=== PATIENT | male | born 1960 | race Caucasian/White ===

== ENCOUNTER 2021-08-02 02:29 | Day surgery (SDC) | payer OTHER, SELFPAY ==
[2021-07-19 14:30] VITALS: BMI 33.9
[2021-08-02 06:41] VITALS: BP 122/84; PULSE 87; RESP 16; TEMP 36.1; O2SAT 97; BMI 32.8
[2021-08-02] MEDS: LACTATED RINGERS 1,000 ML 150 ML IV CONT (07:00)
--- NOTE | 2021-08-02 07:06 | PM.HPGS ---
History of Present Illness History of Present Illness Consent: Risks, benefits, and alternatives have been discussed and questions answered. Patient agrees to proceed with procedure. Chief complaint: hx of colon polyps Narrative: Brendan Ward is a 61 year old male With a history of polyps Review of Systems Review of Systems: All systems reviewed & are unremarkable except as noted in HPI and below PMFSH Social History Social History Smoking status: Never smoker Alcohol intake: current Drinks per week: 6 Living arrangements: with family Spiritual care concerns: No Meds Home Medications and Allergies Home Medications Medication Instructions Recorded Confirmed Type aspirin 325 mg PO HS 07/19/21 08/02/21 History cholecalciferol (vitamin D3) 125 mcg PO DAILY 07/19/21 08/02/21 History dulaglutide [Trulicity] 1.5 mg SUBCUT WEEKLY 07/19/21 08/02/21 History glimepiride 2 mg PO DAILY 07/19/21 08/02/21 History icosapent ethyl [Vascepa] 2 g PO BID 07/19/21 08/02/21 History metformin 1,000 mg PO BID 07/19/21 08/02/21 History metoprolol succinate 50 mg PO DAILY 07/19/21 08/02/21 History niacin [Niaspan Extended-Release] 2,000 mg PO HS 07/19/21 08/02/21 History rivaroxaban [Xarelto] 20 mg PO DAILY 07/19/21 08/02/21 History rosuvastatin 10 mg PO HS 07/19/21 08/02/21 History tadalafil 10 mg PO DAILY PRN 07/19/21 08/02/21 History vitamin B complex [B 1 tablet PO DAILY 07/19/21 08/02/21 History Complex-Vitamin B12] Allergies Allergy/AdvReac Type Severity Reaction Status Date / Time No Known Allergies Allergy Verified 08/02/21 06:39 Vital Signs Vital Signs - 24 hr 08/02/21 06:41 Temperature 36.1 C L Pulse Rate 87 Respiratory Rate 16 Blood Pressure 122/84 Pulse Oximetry 97 Exam Resp: Auscultation: clear to auscultation bilaterally Cardio: Rate: regular rate Rhythm: regular rhythm GI: GI Palp: Yes Soft to palpation and No Tenderness to palpation present (GI) Assessment and Plan Assessment and plan (1) Colon cancer screening: Code(s): Z12.11 - Encounter for screening for malignant neoplasm of colon Status: Acute Assessment and Plan: Colonoscopy with possible biopsy or polypectomy or cautery or injection of substances.
--- NOTE | 2021-08-02 07:09 | P.PNAN_ITS ---
Anes - Initial Pre Proc Eval Procedure: Operation Date: 08/02/21 08:00 Proposed Procedures p Screening Colonoscopy - Jose Marie MD Date/Time: 08/02/21 07:09 Surgeon: Jose Marie MD Pre Op Diagnosis: hx of colon polyps Patient Data Age: 61 Gender: M Height: 1.83 m Weight: 110 kg Last Vital Signs Temp 36.1 C L 08/02/21 06:41 Pulse 87 08/02/21 06:41 Resp 16 08/02/21 06:41 BP 122/84 08/02/21 06:41 Pulse Ox 97 08/02/21 06:41 Allergies Allergy/AdvReac Type Severity Reaction Status Date / Time No Known Allergies Allergy Verified 08/02/21 06:39 Home Medications Medication Instructions Recorded Confirmed Type aspirin 325 mg PO HS 07/19/21 08/02/21 History cholecalciferol (vitamin D3) 125 mcg PO DAILY 07/19/21 08/02/21 History dulaglutide [Trulicity] 1.5 mg SUBCUT WEEKLY 07/19/21 08/02/21 History glimepiride 2 mg PO DAILY 07/19/21 08/02/21 History icosapent ethyl [Vascepa] 2 g PO BID 07/19/21 08/02/21 History metformin 1,000 mg PO BID 07/19/21 08/02/21 History metoprolol succinate 50 mg PO DAILY 07/19/21 08/02/21 History niacin [Niaspan Extended-Release] 2,000 mg PO HS 07/19/21 08/02/21 History rivaroxaban [Xarelto] 20 mg PO DAILY 07/19/21 08/02/21 History rosuvastatin 10 mg PO HS 07/19/21 08/02/21 History tadalafil 10 mg PO DAILY PRN 07/19/21 08/02/21 History vitamin B complex [B 1 tablet PO DAILY 07/19/21 08/02/21 History Complex-Vitamin B12] Patient hx anesthesia problems: none Family hx anesthesia problems: none Results Review: All pre-operative results and documents have been reviewed as part of the pre-operative evaluation. [facility] Past Medical History Medical History (Updated 08/02/21 @ 07:10 by Henry Tejeda MD) Atrial fibrillation Chronic GERD Diabetes HTN (hypertension) Hyperlipidemia Obesity Social History Social History Smoking status: Never smoker Alcohol intake: current Drinks per week: 6 Living arrangements: with family Spiritual care concerns: No Anes - Eval Final PreProcedure Day of Procedure 08/02/21 07:09 Patient weight: obese Heart: regular rate and rhythm Lungs: clear to auscultation and normal air movement Airway: Mallampati scale class II Neurological: alert and oriented Last oral intake: >/= 8 hours ASA classification: III Emergent: no Anesthetic plan: proceed Anesthesia type and monitoring: general GIVS Results Review: All pre-operative results and documents have been reviewed as part of the pre-operative evaluation. Informed Consent: The patient's anesthetic plan and its attendant risks and benefits were discussed with the patient/family/POA. Questions were solicited and answers provided to the satisfaction of the patient/family/POA.
[2021-08-02 08:03] LABS: Glucose Point of Care 186 mg/dl (65-105)
[2021-08-02 08:22] VITALS: BP 99/63; PULSE 87; RESP 16; O2SAT 99
[2021-08-02 08:32] VITALS: BP 95/63; PULSE 100; RESP 21; O2SAT 95
[2021-08-02 08:42] VITALS: BP 110/68; PULSE 90; RESP 23; O2SAT 95
== END 2021-08-02 08:54 | disposition home or self-care (01) ==
PROVIDERS: PCP Internal Medicine; Visit Provider Internal Medicine Gastroenterology
PROC: 0DJD8ZZ Inspection of Lower Intestinal Tract, Via Natural or Artificial Opening Endoscopic (ICD-10-PCS; CPT 45378; principal; 2021-08-02 08:00)
DX: Z12.11 Encounter for screening for malignant neoplasm of colon (principal); K63.5 Polyp of colon; Z79.01 Long term (current) use of anticoagulants; Z79.82 Long term (current) use of aspirin; Z79.84 Long term (current) use of oral hypoglycemic drugs; I48.91 Unspecified atrial fibrillation; K21.9 Gastro-esophageal reflux disease without esophagitis; I10 Essential (primary) hypertension; E78.5 Hyperlipidemia, unspecified; E66.9 Obesity, unspecified; Z68.32 Body mass index [BMI] 32.0-32.9, adult
CPT/HCPCS: 45380; 82948; 88305; J2704; J7120

== ENCOUNTER 2021-08-28 10:01 | Emergency (ER) | payer OTHER, SELFPAY ==
--- NOTE | 2021-08-28 10:09 | ED.GENADULT ---
HPI - General Adult General Chief complaint: Abdominal Pain Stated complaint: groin pain Time Seen by Provider: 08/28/21 10:09 Source: patient and RN notes reviewed Mode of arrival: ambulatory Limitations: no limitations History of Present Illness HPI narrative: Brendan is a 61-year-old male patient who ambulated into the [facility]. Patient has a several day history of left groin pain. Patient states he did move a refrigerator in the last few days. Patient states he did not left he was to stabilize in a refrigerator. Patient states the left groin pain increases with movement of his left leg or walking. Patient rates his pain a 2 while sitting. Patient states it is a 6 with movement. Patient denies Related Data Home Medications Medication Instructions Recorded Confirmed Trulicity 1.5 mg SUBCUT WEEKLY 07/19/21 08/28/21 Xarelto 20 mg PO DAILY 07/19/21 08/28/21 aspirin 325 mg PO HS 07/19/21 08/28/21 glimepiride 2 mg PO DAILY 07/19/21 08/28/21 icosapent ethyl [Vascepa] 2 g PO BID 07/19/21 08/28/21 metformin 2,000 mg PO BID 07/19/21 08/28/21 metoprolol succinate 50 mg PO DAILY 07/19/21 08/28/21 niacin [Niaspan Extended-Release] 2,000 mg PO HS 07/19/21 08/28/21 rosuvastatin 10 mg PO HS 07/19/21 08/28/21 Allergies Allergy/AdvReac Type Severity Reaction Status Date / Time No Known Allergies Allergy Verified 08/28/21 12:24 Review of Systems Review of Systems: CONSTITUTIONAL: denies body aches fever chills, sweats. EYES: Denies visual changes, redness, or discharge. ENT: rhinorrhea, congestion, sore throat, or otalgia. CARDIOVASCULAR: Denies chest pain, palpitations, or edema. RESPIRATORY: Denies cough or dyspnea. GASTROINTESTINAL: Denies abdominal pain, nausea, vomiting, or diarrhea. GENITOURINARY: Denies dysuria or hematuria. SKIN: Denies rash, itching, or wounds. MUSCULOSKELETAL: Denies back pain, joint pain, or myalgia.+ right groin pain NEUROLOGIC: Denies headache, numbness, tingling, or weakness. PSYCH: Denies depression or anxiety. All systems reviewed & are unremarkable except as noted in HPI and below PMFSH Past Medical History Medical History Atrial fibrillation Chronic GERD Diabetes HTN (hypertension) Hyperlipidemia Obesity Social History Social History Smoking status: Never smoker Alcohol intake: current Drinks per week: 6 Spiritual care concerns: No Comments At time of signature, I have reviewed and agree with nursing past medical, surgical, social and family history unless otherwise noted. Please see nursing chart for further information. There is no relevant family history pertinent to the presenting complaint Exam Narrative: GENERAL: Well-appearing, well-nourished, and in no acute distress. HEAD: Normocephalic, atraumatic. EYES: EOMI. No redness or drainage. Conjunctivae normal. ENT: Mucous membranes pink and moist. Nares clear. NECK: Normal AROM. Supple. CHEST: No respiratory distress. Clear to auscultation. ABDOMEN: Soft, nontender, nondistended, normal active bowel sounds. MUSCULOSKELETAL: No bony tenderness' Pain to groin with left leg lift and flexion of hip, testicles pink without nodules, urine yellow and clear, Negative for CVA tenderness bilaterally EXTREMITIES: Normal range of motion. No edema. SKIN: Warm, dry, no rash. Capillary refill normal. Normal skin turgor. NEURO: No focal deficits. Alert and oriented x3. Gait steady. PSYCH: Normal affect. No signs of depression or anxiety. Course Vital Signs Vital signs: Vital Signs Temperature 36.2 C L 08/28/21 10:12 Pulse Rate 87 08/28/21 10:12 Respiratory Rate 18 08/28/21 10:12 Blood Pressure 124/88 08/28/21 10:12 Pulse Oximetry 98 08/28/21 10:12 Temperature 36.2 C L 08/28/21 10:12 Pulse Rate 87 08/28/21 10:12 Respiratory Rate 18 08/28/21 10:12 Blood Pressure 124/88 1
[2021-08-28 10:12] VITALS: BP 124/88; PULSE 87; RESP 18; TEMP 36.2; O2SAT 98
== END 2021-08-28 10:44 | disposition home or self-care (01) ==
PROVIDERS: Emergency Provider Nurse Practitioner Family; PCP Internal Medicine
DX: S39.011A Strain of muscle, fascia and tendon of abdomen, initial encounter (principal); X58.XXXA Exposure to other specified factors, initial encounter; K21.9 Gastro-esophageal reflux disease without esophagitis; E11.9 Type 2 diabetes mellitus without complications; I10 Essential (primary) hypertension; E78.5 Hyperlipidemia, unspecified; E66.9 Obesity, unspecified; Z68.45 Body mass index [BMI] 70 or greater, adult
CPT/HCPCS: 81003; 87086; 99213; G0463

== ENCOUNTER 2024-06-20 07:57 | Outpatient (CLI) | payer OTHER, SELFPAY ==
--- NOTE | 2024-06-20 08:04 | ECG_ITS ---
Test Date: 2024-06-20 08:16:55 Measurements Intervals [place] Rate: 73 P: 0 VT: 0 QRS: -9 QRSD: 80 T: 14 QT: 386 QTc: 427 Interpretive Statements ATRIAL FIBRILLATION LOW QRS VOLTAGE IN EXTREMITY LEADS [QRS DEFLECTION < 0.5 mV IN LIMB LEADS] ABNORMAL RHYTHM ECG No previous ECG available for comparison Electronically Signed On 06-20-2024 12:08:47 CDT by Geronimo Capps M.D.
== END 2024-06-20 07:58 | disposition home or self-care (01) ==
LOC: ANHSURGERY 08:01
PROVIDERS: PCP Physician Assistant Medical; Visit Provider Surgery
DX: K43.6 Other and unspecified ventral hernia with obstruction, without gangrene (principal); I10 Essential (primary) hypertension; Z01.818 Encounter for other preprocedural examination
CPT/HCPCS: 36415; 86850; 86900; 86901; 93005

== ENCOUNTER 2024-06-21 04:35 | Day surgery (SDC) | payer OTHER, SELFPAY ==
--- NOTE | 2024-06-19 10:47 | PC.NURSE ---
Report to the Outpatient Waiting Room, entrance under the green pavilion located off [facility], at time _0900_ on date _[id number]_. Planned Procedure Time: _1100_.? Time changes happen often and if your time is changed the preop area will call you the afternoon before. - You and your visitor will be asked to self-screen and do not enter if you have any COVID symptoms. Please call surgeon if you need to reschedule. - A mask is optional within the hospital at this time. Patients may have clear liquids (water, carbonated beverages, clear teas, apple juice) until 3 hours prior to surgery with a maximum of 20 ounces. - No food from midnight until time of surgery and no smoking Take only the following medications with a SIP of water on the morning of surgery: __Metoprolol DO NOT STOP ANY OF YOUR OTHER PRESCRIPTION MEDICATIONS PRIOR TO SURGERY EXCEPT THE FOLLOWING Medications to discontinue per physician ____Vitamins and fish oil Date to take last dose___Stop now. Patient stopped Xarelto 06-18-2024 per 's instructions. Please no make-up, nail occitan, hairspray, perfume, deodorant, or body powder the day of surgery.? No jewelry (including any body piercings) or valuables the day of surgery, leave them at home.? Please take a shower or bath the night before, or the morning of, surgery with an antibacterial soap.? Wear comfortable, loose fitting clothing.? - Jewelry must be removed prior to entering the operating room.? Rings and piercings that are not removed may be cut off. - The hospital will not accept responsibility for valuables.? - Please leave all valuables, including medications, at home the day of surgery. If you are going home after surgery, a licensed four horse hitch driver must drive you home.? - NO public transportation without another adult if you receive anesthesia. - We recommend that an adult stay with you for 24 hours following discharge. - We also recommend that you do not drive, make important decision, drink alcoholic beverages, or take any drugs that were not prescribed by your health care provider for at least 24 hours after your discharge time. Follow any additional instructions given to you from your surgeon. Telephone instructions given to __Denjoselito__and asked if any additional questions and then verbalized understanding. Patient advised to call surgeon office or pre surgery nurse liaison [phone] if any additional questions.
[2024-06-19 10:51] VITALS: BMI 29.2
--- NOTE | 2024-06-20 14:07 | WPDANESEPPF ---
Anes - Initial Pre Proc Eval Procedure: Operation Date: 06/21/24 11:00 Proposed Procedures p Robotic Assisted Laparoscopic Extended Totally Extraperitoneal Incarcerated Ventral Hernia Repair with Mesh, Possible Open, - Kemal Hendricks MD s Excision of Midback Sebaceous Cyst - Kemal Hendricks MD Date/Time: 06/20/24 14:07 Surgeon: Kemal Hendricks MD Pre Op Diagnosis: incarcerated ventral hernia, sebaceous back cyst Patient Data Age: 64 Gender: M Height: 1.83 m Weight: 97.7 kg Allergies Allergy/AdvReac Type Severity Reaction Status Date / Time No Known Allergies Allergy Verified 06/21/24 10:01 Home Medications Medication Instructions Recorded Confirmed Type metoprolol succinate 50 mg 50 mg PO DAILY 07/19/21 06/21/24 History tablet,extended release 24 hr rivaroxaban 20 mg tablet (Xarelto) 20 mg PO DAILY 07/19/21 06/19/24 History metformin 500 mg tablet,extended 1,000 mg PO BID #180 tabs 05/21/24 06/19/24 Rx release 24 hr icosapent ethyl 1 gram capsule 2 g PO BID #360 caps 06/05/24 06/19/24 Rx (Vascepa) blood-glucose meter,continuous #1 ea 06/10/24 06/19/24 Rx (FreeStyle Pam 3 [place]) blood-glucose sensor (FreeStyle #2 ea 06/10/24 06/19/24 Rx Pam 3 Sensor device) glimepiride 2 mg tablet 2 mg PO DAILY #90 tabs 06/10/24 06/19/24 Rx rosuvastatin 10 mg tablet 10 mg PO QHS 06/10/24 06/19/24 History tadalafil 10 mg tablet (Cialis) 10 mg PO DAILY PRN sexual activity 06/10/24 06/19/24 Rx #15 tabs semaglutide 1 mg/dose (4 mg/3 mL) 1 mg (0.75 mL) subcut WEEKLY #12 mL 06/13/24 06/19/24 Rx subcutaneous pen injector (Ozempic) cholecalciferol (vitamin D3) 125 125 mcg PO DAILY 06/19/24 06/19/24 History mcg (5,000 unit) tablet (Vitamin D3) cyanocobalamin (vitamin B-12) 1,000 mcg PO DAILY 06/19/24 06/19/24 History 1,000 mcg tablet (Vitamin B-12) zinc 50 mg tablet 50 mg PO DAILY 06/19/24 06/19/24 History Patient hx anesthesia problems: none Family hx anesthesia problems: none Results Review: All pre-operative results and documents have been reviewed as part of the pre-operative evaluation. [facility] Past Medical History Medical History Atrial fibrillation Chronic GERD Diabetes Diabetic neuropathy HTN (hypertension) Hyperlipidemia Obesity Surgical History Surgical History History of elbow surgery Family History Family History Father Diabetes mellitus Hypertension Mother Cancer Sibling Diabetes mellitus Hypertension Social History Social History Social History: 06/03/24 very confident with medical forms. Smoking status: Never smoker Alcohol intake: current Drinks per week: 5 Alcohol use details: whiskey; 2 per month Substance use: never Substance use type: marijuana Other substance usage details: Maybe monthly Do You Feel Safe in your Home?: Yes Lack of Transportation: No Lack of Food: Never True Current Housing: I Have Housing Concerned About Future Housing: No Difficulty Paying Gas/Electric Bills: No Difficulty Paying for Meds: No Currently Unemployed: No Education: Bachelor's Degree Difficulty w/ Childcare or Family Care: No Living arrangements: with family Spiritual care concerns: No Agree to blood products: Yes Anes - Eval Final PreProcedure Day of Procedure 06/20/24 14:07 Patient weight: normal Heart: regular rate and rhythm Lungs: clear to auscultation Airway: Mallampati scale class II Neurological: alert and oriented Last oral intake: >/= 8 hours ASA classification: III Emergent: no Anesthetic plan: proceed Anesthesia type and monitoring: general ETT and standard monitoring Results Review: All pre-operative results and documents have been reviewed as part of the pre-operat
[2024-06-21] VITALS (9 sets, daily range): BP systolic 117–141; BP diastolic 70–97; PULSE 69–106; RESP 12–18; TEMP 36.2–36.7; O2SAT 92–100
[2024-06-21] MEDS: LACTATED RINGERS 1,000 ML 30 ML IV CONT ×2 (09:15→15:42)
[2024-06-21 09:48] LABS: Glucose Point of Care 129 mg/dl (65-105)
[2024-06-21] MEDS: KETOROLAC 15 MG/ML VIAL (*BKC) IV PUSH (10:01)
[2024-06-21] MEDS: ACETAMINOPHEN 500 MG TABLET 1000 MG PO (10:01)
--- NOTE | 2024-06-21 10:10 | WPDHPUPDATE1 ---
History and Physical Update Update Date/Time: 06/21/24 10:10 History and Physical has been reviewed, including an updated exam of the patient. There are NO changes in the patient's condition. Risks, benefits, and alternatives have been discussed and questions answered. Patient agrees to proceed with procedure.
[2024-06-21] MEDS: ceFAZolin 2 GM/D5W 50 ML 2 GM/50 ML BAG IVPB (10:49)
[2024-06-21] MEDS: LIDO 1%/EPINEPHRINE 1:100,000 20 ML VIAL 30 ML INFILTRATE (11:31)
[2024-06-21] MEDS: BUPivacaine HCL 0.5% 10 ML AMP 30 ML INFILTRATE (11:32)
[2024-06-21 14:32] LABS: Glucose Point of Care 203 mg/dl (65-105)
--- NOTE | 2024-06-21 15:49 | SUR.OPER ---
Blood Glucose check at 1423 Patients blood glucose was 203.
[2024-06-21 16:06] LABS: Glucose Point of Care 200 mg/dl (65-105)
--- NOTE | 2024-06-21 16:56 | W.PM.PROC2 ---
Procedure Note - Detailed Date of Procedure 06/21/24 Pre-op Diagnosis Incarcerated ventral hernia, sebaceous back cyst Post-op Diagnosis Same Procedure Performed Robotic assisted laparoscopic incarcerated periumbilical ventral extended totally extraperitoneal (ETEP) hernia repair with Synecor mesh. Excision of mid upper back sebaceous cyst with 5cm intermediate layered wound closure Surgeon Kemal Hendricks MD Medical Billing And Coding Specialist TRUMAN Lindsay Anesthesia General Indications Patient is a 64 old gentleman who presented with incarcerated periumbilical ventral hernia. He had been enlarging and causing some minor soreness. He also has a associated epigastric diastasis with muscle separation approximately 3 to 4 cm. He also has a enlarging sebaceous cyst on his mid upper back region. He presents now for a robotic assisted laparoscopic extended totally extraperitoneal hernia repair with mesh as well as excision of the sebaceous cyst on his mid upper back. Findings The patient incarcerated umbilical ventral hernia with preperitoneal fat and omentum incarcerated within the hernia sac. Omentum was viable. The defect measured approximately 1.5cm in diameter. Associated midline rectus diastasis was noted extending from the umbilicus to the xiphoid process with a maximal separation of the edges of the muscle about 3 cm. The hernia and diastasis were repaired and reinforced the placement of Synecor mesh in the retrorectus plane. The mesh measured [id number]. A mid upper back sebaceous cyst was also removed. This is measured 4x2x2.5cm. The incision was closed in intermediate layered fashion with the closure measuring 5cm. Description of Procedure After informed consent was obtained patient brought to the operating room where he was placed in a supine position and general endotracheal anesthesia was administered. We then had a turned onto his right lateral side in the decubitus position with lateral positioners in place. The area the upper mid back was then prepped and draped usual sterile fashion. Time-out was then performed correctly identifying the patient as well as procedure performed verifying the site marking. He was given perioperative IV antibiotics. I then proceeded to inject 1% lidocaine mixed with 0.5% Marcaine around the cyst for local anesthetic effect. An elliptical longitudinal incision was then made around the cyst wall. It was carried sharply down through the dermis of the skin into the underlying subcutaneous tissue. Electrocautery was then used to completely excise out the ellipse of skin and the underlying subcutaneous tissue containing the cyst wall. Once the tissue had been completely excised out and measured and the cyst measured approximately 4x2x2.5cm. It was sent to pathology for examination. I then irrigated out the incision sterile saline solution hemostasis was then achieved utilizing electrocautery. The incision was then closed in multiple layers the intermediate layered wound closure. Interrupted 2-0 Vicryl sutures were placed and 2 subcutaneous layers and then this was followed by a layer of interrupted 3-0 Vicryl sutures in the more superficial subcutaneous tissues. The skin edges were then approximated utilizing a running subcuticular 4-0 Monocryl suture. The incision was then cleaned and skin glue was applied. The length of the skin closure was 5cm. The patient was then turned onto the supine position on operating room table. A Cordon catheter was then placed to decompress the bladder. The abdomen was then prepped and draped usual sterile fashion. Time-out had previously already been performed. I then proceeded to make a small incision left upper quadrant just below the medial portion of the lowest rib. A 5mm Optiview port was then used to dissect down through the subcutaneous tissues and through the anterior rectus fascia. At this point either with blunt dissection with the port and the laparoscopic performed bl
[2024-06-21] MEDS: ONDANSETRON INJ 4 MG/2 ML VIAL IV PUSH (17:19)
== END 2024-06-21 18:07 | disposition home or self-care (01) ==
PROVIDERS: PCP Physician Assistant Medical; Visit Provider Surgery
PROC: (CPT 49592; principal; 2024-06-21 11:00)
PROC: (CPT 49592; 2024-06-21 11:00)
DX: K43.6 Other and unspecified ventral hernia with obstruction, without gangrene (principal); L72.3 Sebaceous cyst; I48.91 Unspecified atrial fibrillation; K21.9 Gastro-esophageal reflux disease without esophagitis; E11.9 Type 2 diabetes mellitus without complications; I10 Essential (primary) hypertension; E78.5 Hyperlipidemia, unspecified; F12.90 Cannabis use, unspecified, uncomplicated; Z79.01 Long term (current) use of anticoagulants; Z79.84 Long term (current) use of oral hypoglycemic drugs; Z79.85 Long-term (current) use of injectable non-insulin antidiabetic drugs; Z98.890 Other specified postprocedural states; Z80.9 Family history of malignant neoplasm, unspecified
CPT/HCPCS: 49592; 11406; 12032; S2900; 36415; 82948; 86850; 86900; 86901; 88305; 93005; A9270; J0690; J1100; J1171; J1885; J2003; J2004; J2250; J2405; J2704; J3010; J7120

== ENCOUNTER 2024-08-21 09:30 | Outpatient (CLI) | payer OTHER, SELFPAY ==
--- NOTE | ~2024-08-21 | US_ITS ---
EXAMINATION: US arterial ankle brachial ind DATE: 08/21/2024 10:42 INDICATION: Other specified symptoms and signs involving the circulatory system. Claudication, lower extremity pain and paresthesias, pleural effusion and right foot ulceration. TECHNIQUE: Segmental pressures and plethysmographic and Doppler waveforms of the brachial and lower e xtremity arteries were obtained. COMPARISON: None. FINDINGS: Right and left brachial artery pressures of 108 mm Hg and 104 mm Hg, respectively, are concordant (no rmal difference <= 30 mmHg). The right ankle-brachial index (NIMO) is 1.20 (normal >= 0.9-1.0) days upon pressures in the right yin salis pedis artery with the right posterior tibial artery unable to be occluded. The right great toe- brachial index (TBI) is 0.56 (normal >= 0.65). Arterial Doppler waveforms are biphasic at the right p osterior tibial artery and monophasic at the right dorsalis pedis artery, both with brisk systolic up strokes. Cardiac arrhythmia is present. The left NIMO is unable to be obtained due to inability to occlude the vessels at the left ankle. The left TBI is 0.53. Arterial Doppler waveforms are biphasic with brisk systolic upstrokes at both left posterior tibial and dorsalis pedis arteries. IMPRESSION: 1. Mild arterial occlusive disease to the bilateral lower limbs with mildly decreased bilateral TBI's . 2. Cardiac arrhythmia is present. Correlate with EKG. Reviewed, dictated and finalized at location A. [facility] MAINTENANCE TECHNICIAN IMPRESSION: 1. Mild arterial occlusive disease to the bilateral lower limbs with mildly dec reased bilateral TBI's. 2. Cardiac arrhythmia is present. Correlate with EKG.
== END 2024-08-21 09:31 | disposition home or self-care (01) ==
PROVIDERS: PCP Physician Assistant Medical; Visit Provider Physician Assistant Medical
DX: R09.89 Other specified symptoms and signs involving the circulatory and respiratory systems (principal); I77.1 Stricture of artery; I49.9 Cardiac arrhythmia, unspecified
CPT/HCPCS: 93922